=== PATIENT | female | born 1960 | race Caucasian/White ===

== ENCOUNTER 2021-04-15 10:45 | Day surgery (SDC) | payer MEDICARE, OTHER ==
[2021-04-15] VITALS (10 sets, daily range): BP systolic 113–172; BP diastolic 58–76; PULSE 75–86; TEMP 98.3
[~2021-04-15] VITALS: Ht 152.5 cm; Wt 99.8 kg
[2021-04-15 11:54] LABS: HEMATOCRIT 42.9 % (37.0-47.0); HEMOGLOBIN 14.5 g/dl (12.5-16.0); MEAN CELL VOLUME 91 fl (80.0-100.0); MEAN CORPUSCULAR HEMOGLOBIN 31 pg (27.0-31.0); MEAN CORPUSCULAR HGB CONC 34 g/dl (33.0-37.0); MEAN PLATELET VOLUME 10.4 fl (7.4-10.4); PLATELET COUNT 255 K/mm3 (130-400); RED BLOOD COUNT 4.74 M/mm3 (4.10-5.30); REDCELL DISTRIBUTION WIDTH-CV 12.7 % (11.5-14.5)
[2021-04-15 12:02] LABS: INR 1.1 (0.8-3.0); PROTHROMBIN TIME 11.9 SECONDS (9.7-12.8)
[2021-04-15 12:04] LABS: CALCIUM 9.1 mg/dL (8.4-10.2); CREATININE, serum 0.84 (0.52-1.25); PARTIAL THROMBOPLASTIN TIME 33.1 SECONDS (26.0-37.0); POTASSIUM 4.1 mmol/L (3.4-5.0)
[2021-04-15] MEDS ORDERED: EFFEXOR XR75 MG/CAP PO (12:15)
[2021-04-15] MEDS ORDERED: EXCEDRIN1 TAB PO (12:15)
[2021-04-15] MEDS ORDERED: LASIX 20MG TABL20 MG PO (12:15)
[2021-04-15] MEDS ORDERED: ATARAX50 MG PO (12:16)
[2021-04-15] MEDS ORDERED: SYNTHROID 0.10.15 MG PO (12:16)
[2021-04-15] MEDS ORDERED: GLUCOPHAGE500 MG/TAB PO (12:17)
[2021-04-15] MEDS ORDERED: MOBIC15 MG PO (12:17)
[2021-04-15] MEDS ORDERED: PRILOSEC 20MG20 MG PO (12:18)
[2021-04-15] MEDS ORDERED: NITROSTAT0.4 MG/TAB SL (12:18)
[2021-04-15] MEDS ORDERED: PRAVACHOL 20MG20 MG PO (12:21)
[2021-04-15] MEDS ORDERED: PROAIR HFA0.09 MG/AC IH (12:21)
[2021-04-15] MEDS ORDERED: SEROQUEL 200MG200 MG PO (12:21)
[2021-04-15] MEDS ORDERED: DESYREL 100MG100 MG PO (12:22)
--- NOTE | 2021-04-15 13:59 | NUR ---
SEE MERGE FOR ALL MEDICATION ADMINISTRATION TIMES, INTRA AND POST SEDATION ASSESSMENTS
[2021-04-15] MEDS ORDERED: ASPIRIN 81M81 MG/TA2 PO (16:27)
--- NOTE | 2021-04-15 17:40 | NUR ---
DC instructions reviewed with pt, she expressed understanding. Air has been removed from TR band in 2ml increments with no bleeding or complication. Rt radial puncture site dressed with 2x2 and bandaid. IV DC'd with catheter intact. Pt steady on feet in room. She is assisted out to daughter's car by wheelchair with belongings.
== END 2021-04-15 17:42 | disposition home or self-care (01) ==
LOC: COL.CAR 10:45
PROVIDERS: Internal Medicine Interventional Cardiology
DX: I25.119 Atherosclerotic heart disease of native coronary artery with unspecified angina pectoris (principal); I65.29 Occlusion and stenosis of unspecified carotid artery; R94.39 Abnormal result of other cardiovascular function study; R60.0 Localized edema; Z79.84 Long term (current) use of oral hypoglycemic drugs; Z79.899 Other long term (current) drug therapy; Z79.02 Long term (current) use of antithrombotics/antiplatelets; Z79.890 Hormone replacement therapy
CPT/HCPCS: C1769; J1644; J2250; J3010